=== PATIENT | female | born 1990 | race Caucasian/White ===

== ENCOUNTER → 2023-11-29 14:47 | Outpatient (REF) | payer OTHER, SELFPAY | LOC: PNTC 14:47 | PROVIDERS: ATTENDING PHYSICIAN Obstetrics & Gynecology | DX: O99.210 Obesity complicating pregnancy, unspecified trimester (principal); Z87.51 Personal history of pre-term labor | CPT/HCPCS: 76816; 76817 ==

== ENCOUNTER → 2023-12-27 10:51 | Outpatient (REF) | payer OTHER, SELFPAY | LOC: PNTC 10:51 | PROVIDERS: ATTENDING PHYSICIAN Obstetrics & Gynecology | DX: Z87.51 Personal history of pre-term labor (principal); O99.210 Obesity complicating pregnancy, unspecified trimester | CPT/HCPCS: 76816 ==

== ENCOUNTER 2024-01-05 14:00 | Emergency (ER) | payer OTHER, SELFPAY ==
[2024-01-05 14:13] VITALS: BP 156/117
[2024-01-05 14:58] LABS: % Basophils 0.2 % (0-2); % Eosinophils 1.1 % (0-6); % Immature Granulocytes 0.8 % (0-0.5); % Lymphocytes 20.2 % (20.5-51.1); % Neutrophils 70.7 % (42.2-75.2); Absolute Eosinophils 0.1 10^3/uL (0-0.7); Absolute Immature Granulocytes 0.1 10^3/uL (0-0.05); Absolute Lymphocytes 2.7 10^3/uL (1.2-3.4); Absolute Monocytes 0.9 10^3/uL (0.1-0.6); Absolute Neutrophils 9.4 10^3/uL (1.4-6.5); Hematocrit 30.8 % (37.0-47.0); Mean Corp Hgb Conc. 35.7 g/dL (33.0-37.0); Mean Corpuscular Hgb 29.6 pg (27.0-31.0); Mean Corpuscular Volume 82.8 fL (81.0-99.0); Mean Platelet Volume 9.1 fL (7.4-10.4); Nucleated Red Blood Cells % 0 %; Platelet Count 334 10^3/uL (130-400); Red Blood Cell Count 3.72 10^6/uL (4.20-5.40); Red Cell Dist. Width 14.1 % (11.5-14.5); White Blood Cell Count 13.3 10^3/uL (4.8-10.8)
[2024-01-05 14:59] LABS: Urine Albumin Negative (Neg - Trace); Urine Bilirubin Negative (Negative); Urine Character Clear (Clear); Urine Color Yellow; Urine Glucose Negative (Negative); Urine Ketone Negative (Negative); Urine Leukocyte Trace (Negative); Urine Nitrite Negative (Negative); Urine Occult Blood Trace (Negative); Urine Urobilinogen Negative (Neg - 1+)
--- NOTE | 2024-01-05 14:59 | ED.GENMED ---
History of Present Illness
General
Chief Complaint: Blood Pressure Problem
Source: patient
Time Seen by Provider: 01/05/24 14:53
Travel History
Have you had any contact with someone who has COVID-19?: No
Do you have any symptoms of coronavirus? Fever > 100 degrees, chills, cough, shortness of breath, sore throat, loss of taste or smell, muscle aches, or headache?: No
History of Present Illness
History of Present Illness:
33-year-old female presents to the emergency room because she is feeling 'just not himself'. She noticed this today. She denies headache currently but has had a headache earlier today. she denies nausea or vomiting. Patient states that she really
has not been feeling exactly herself since taking a glucose tolerance test about a week ago. First test was abnormal so she had a 3-hour test performed couple days ago. She has not gotten the results yet. She denies any fever, chills, cough.
Past History
Past History
ED Past Medical History: None
ED Past Surgical History: Other (Oral)
Social History
Tobacco: Non-smoker
Phy Exam
Physical Exam
Physical Exam:
General: Awake, Alert, Oriented X3. No acute distress.
Vitals: Hypertensive in triage. Repeat blood pressure by me is systolic of 141 on the right, 130 on the left
Head: Atraumatic
Eyes: Pupils equal, EOMI
Throat: Airway intact, no exudates
Neck: Trachea midline
Lungs: Clear and equal b/l
Heart: Regular rate, no murmurs
Abd: Soft, Nontender, No pulsatile mass
Neuro: Nonfocal, brisk reflexes bilaterally
Skin: Warm, dry, no rash
Extremities: pulses equal b/l, no edema
Course
Orders/Labs/Results
Orders:
Orders
01/05/24 14:21
Electrocardiogram (*1) Urgent
Reason for Study: Fatigue / Weakness
01/05/24 14:22
EKG- Treatment ONCE
01/05/24 14:25
Add On- LAB Urgent
Tests Added?: uric acid
01/05/24 14:31
Complete Blood Count/With Diff Urgent
Comprehensive Metabolic Panel Urgent
Magnesium Urgent
Uric Acid Urgent
Comment: URIC ACID ADDED ON BY FLOOR 2:30PM 01-05-24
Influenza A+B Rapid Molecular Urgent
CLEVE Source: Nasal Swab
Specimen Description:
Date Specimen was Collected: 01/05/24
Time Specimen was Collected: 14:26
01/05/24 14:32
COVID-19 Antigen Urgent
Source: Nasal Swab
Protein/Creat Ratio (Random) Urgent
Date Specimen was Collected: 01/05/24
Time Specimen was Collected: 14:26
Comment: ADD ON
Urine Culture Reflexed from UA [Urinalysis Reflex To Culture] Urgent
Date Specimen was Collected: 01/05/24
Time Specimen was Collected: 14:26
Urine Microscopic Reflex Cult Urgent
01/05/24 15:15
Heart Tones ONCE
01/05/24 15:22
Add On- LAB Urgent
Tests Added?: protein/creat ratio
Abnormal Lab Results
01/05/24 01/05/24
14:31 14:32
WBC 13.3 H 10^3/uL
(4.8-10.8)
RBC 3.72 L 10^6/uL
(4.20-5.40)
Hgb 11.0 L g/dL
(12.0-16.0)
Hct 30.8 L %
(37.0-47.0)
Abs Immat Gran (auto) 0.1 H 10^3/uL
(0-0.05)
Absolute Neuts (auto) 9.4 H 10^3/uL
(1.4-6.5)
Absolute Monos (auto) 0.9 H 10^3/uL
(0.1-0.6)
Immature Gran % 0.8 H %
(0-0.5)
Lymphocytes % 20.2 L %
(20.5-51.1)
Sodium 133 L mmol/L
(135-145)
Chloride 108 H mmol/L
(98-107)
Carbon Dioxide 19 L mmol/L
(22-30)
BUN 6 L mg/dl
(7-17)
Creatinine 0.4 L mg/dL
(0.6-1.0)
Albumin 3.4 L g/dl
(3.5-5.0)
Ur Occult Blood Reflex Trace A
(Negative)
Leukocyte Esterase Rfl Trace A
(Negative)
Urine RBC 3-6 A /HPF
(0-2)
Urine Bacteria (Reflex) Few A
(Negative)
01/05/24 14:31
01/05/24 14:31
Vital Signs
Initial and Last Documented VS:
Initial Vital Signs
Temp Pulse Resp BP Pulse Ox
98.3 F 115 20 156/117 97
01/05/24 14:13 01/05/24 14:13 01/05/24 14:13 01/05/24 14:13 01/05/24 14:13
Last Documented Vital Signs
Temp Pulse Resp BP Pulse Ox
98.3 F 115 20 120/75 97
01/05/24 14:13 01/05/24 14:13 01/05/24 14:13 01/05/24 15:29 01/05/24 14:13
MDM/Problems Addressed
Differential Diagnosis Includes:
pre-eclampsia, vaso-vagal event, uri
MDM/Problems Addressed:
Patient presented with a somewhat elevated blood pressure. However several blood pressures were more normal. Labs show no elevation of uric acid, normal platelets, normal LFTs, no protein in the urine. Dr. Ventura saw the patient for [employer]. Stable for
discharge and outpatient follow-up. No evidence for any acute infectious process. I personally measured heart tones with Doppler at 140s
*Pulse Oximetry
Patient hypoxic: no
*Critical Care Note
Total Time (30-74mins, 75-104mins- exclusive of procedures): Not Applicable
ED Attending Note
-
Portions of this chart may have been created with voice recognition software.� Occasional wrong word or��sound alike� substitutions may have occurred due to the inherent limitations of voice recognition software.
Discharge Plan
Departure
Patient Disposition: Home (Routine Discharge)
Date of Disposition: 01/05/24
Time of Disposition: 15:34
Patient with high blood pressure during this ER visit?: No
Discharge Problem:
Vasovagal episode
Instructions: Vasovagal Response (DC)
Prescriptions:
No Action
ondansetron 8 mg tablet,disintegrating
8 mg PO TID PRN (Reason: nausea and vomiting) Qty: 20 0RF
oxycodone 5 mg tablet
5 mg PO Q4H PRN (Reason: Pain) Qty: 10 0RF
prednisone 20 mg tablet
20 mg PO BID Qty: 6 0RF
Referrals:
NONE,* [Family Provider] -
Interventions
Interventions:
*Risk Screen - Suicide Last Done: 01/05/24 14:13
*General Assessment Last Done: 01/05/24 14:13
*Neglect/Abuse Screening Last Done: 01/05/24 15:45
ED- Fall Risk Assessment Last Done: 01/05/24 15:45
*ED COVID-19 Vaccine History Last Done: 01/05/24 15:45
*Nursing Disposition Last Done: 01/05/24 15:45
ED- Cardiac Assessment Last Done: 01/05/24 15:45
ED- Neurological Assessment Last Done: 01/05/24 15:46
ED- Pulmonary Assessment Last Done: 01/05/24 15:46
Discharge Date and Time
Discharge Date/Time: 01/05/24 15:45
[2024-01-05 15:00] LABS: COVID-19 Antigen Negative (Negative)
[2024-01-05 15:02] LABS: ALT (SGPT) < 10 U/L (0-35); AST (SGOT) 16 U/L (14-36); Albumin 3.4 g/dl (3.5-5.0); Alkaline Phosphatase 123 U/L (38-126); Blood Urea Nitrogen 6 mg/dl (7-17); Calcium 9.1 mg/dl (8.4-10.2); Carbon Dioxide 19 mmol/L (22-30); Chloride 108 mmol/L (98-107); Glucose 99 mg/dl (70-99); Magnesium 1.8 mg/dl (1.6-2.3); Potassium 3.9 mmol/L (3.5-5.1); Sodium 133 mmol/L (135-145); Total Bilirubin 0.2 mg/dl (0.2-1.3); Total Protein 6.3 g/dl (6.3-8.2); Uric Acid 3.7 mg/dl (2.5-6.2); eGFR > 60.00
[2024-01-05 15:27] LABS: Urine Mucus Few; Urine Red Cell Cast 0-2 /LPF; Urine Squamous Cell 0-2 /LPF (Few); Urine White Cell Cast 0-2 /LPF
[2024-01-05 15:29] VITALS: BP 120/75
[2024-01-05 15:55] LABS: Protein/creatinine Ratio 0.1; Urine Protein 10 mg/dl
[2024-01-05 16:53] LABS: Urine Bacteria Few (Negative); Urine White Cell 0-2 /HPF (0-5)
== END 2024-01-05 15:45 | disposition home or self-care (01) ==
LOC: EMR 14:00
PROVIDERS: EMERGENCY PHYSICIAN Emergency Medicine
DX: O26.893 Other specified pregnancy related conditions, third trimester (principal); R55 Syncope and collapse; Z3A.29 29 weeks gestation of pregnancy
CPT/HCPCS: 99284; 80053; 81003; 81015; 82570; 83735; 84156; 84550; 85025; 87502; 87811; 93005

== ENCOUNTER → 2024-02-06 15:23 | Outpatient (REF) | payer OTHER, SELFPAY | LOC: PNTC 15:23 | PROVIDERS: ATTENDING PHYSICIAN Obstetrics & Gynecology | DX: Z87.51 Personal history of pre-term labor (principal); O98.519 Other viral diseases complicating pregnancy, unspecified trimester; U07.1 COVID-19; O99.320 Drug use complicating pregnancy, unspecified trimester | CPT/HCPCS: 76816 ==

== ENCOUNTER 2024-02-20 14:15 | Observation (INO) | payer OTHER, SELFPAY ==
[2024-02-20 14:26] VITALS: BP 131/97; BMI 31.5
[2024-02-20 15:08] LABS: Urine Albumin 1+ (Neg - Trace); Urine Bilirubin 1+ (Negative); Urine Character Clear (Clear); Urine Glucose Negative (Negative); Urine Ketone 1+ (Negative); Urine Leukocyte 1+ (Negative); Urine Nitrite Negative (Negative); Urine Occult Blood Negative (Negative); Urine Specific Gravity 1.025 (<1.030); Urine Urobilinogen 1+ (Neg - 1+)
[2024-02-20 15:10] LABS: Urine Color Yellow
[2024-02-20 15:19] LABS: Urine Squamous Cell 26-30 /LPF (Few)
[2024-02-20 15:20] LABS: Urine Red Blood Cell 0-2 /HPF (0-2)
[2024-02-20 15:29] LABS: ALT (SGPT) < 10 U/L (0-35); AST (SGOT) 17 U/L (14-36); Albumin 3.3 g/dl (3.5-5.0); Alkaline Phosphatase 178 U/L (38-126); Blood Urea Nitrogen 12 mg/dl (7-17); Calcium 9.6 mg/dl (8.4-10.2); Carbon Dioxide 21 mmol/L (22-30); Chloride 107 mmol/L (98-107); Estimated Creatinine Clearance > 125 ml/min; Glucose 129 mg/dl (70-99); Hemoglobin 11.9 g/dL (12.0-16.0); Mean Corp Hgb Conc. 33.1 g/dL (33.0-37.0); Mean Corpuscular Hgb 27.7 pg (27.0-31.0); Mean Corpuscular Volume 83.9 fL (81.0-99.0); Mean Platelet Volume 10.3 fL (7.4-10.4); Platelet Count 387 10^3/uL (130-400); Potassium 4.2 mmol/L (3.5-5.1); Red Blood Cell Count 4.29 10^6/uL (4.20-5.40); Red Cell Dist. Width 14.3 % (11.5-14.5); Sodium 131 mmol/L (135-145); Total Bilirubin 0.3 mg/dl (0.2-1.3); Total Protein 6.5 g/dl (6.3-8.2); White Blood Cell Count 12.5 10^3/uL (4.8-10.8); eGFR > 60.00
[2024-02-20 15:43] LABS: Urine Protein 15 mg/dl
== END 2024-02-20 16:47 | disposition home or self-care (01) ==
LOC: PNTC-IN 14:15
PROVIDERS: ADMITTING PHYSICIAN Obstetrics & Gynecology
DX: O26.893 Other specified pregnancy related conditions, third trimester (principal); R03.0 Elevated blood-pressure reading, without diagnosis of hypertension
CPT/HCPCS: 80053; 81003; 81015; 82570; 84156; 85027; 86850; 86900; 86901; G0378

== ENCOUNTER 2024-02-22 01:12 | Inpatient (IN) | payer OTHER, SELFPAY ==
[2024-02-22 01:14] VITALS: BP 136/91; BMI 31.1
[2024-02-22 02:44] LABS: % Basophils 0.2 % (0-2); % Eosinophils 1.1 % (0-6); % Immature Granulocytes 0.3 % (0-0.5); % Lymphocytes 27.8 % (20.5-51.1); % Monocytes 8.1 % (1.7-9.3); % Neutrophils 62.5 % (42.2-75.2); Absolute Eosinophils 0.1 10^3/uL (0-0.7); Absolute Lymphocytes 3.3 10^3/uL (1.2-3.4); Absolute Neutrophils 7.4 10^3/uL (1.4-6.5); Hematocrit 32.5 % (37.0-47.0); Hemoglobin 11.2 g/dL (12.0-16.0); Mean Corp Hgb Conc. 34.5 g/dL (33.0-37.0); Mean Corpuscular Hgb 28.3 pg (27.0-31.0); Mean Corpuscular Volume 82.1 fL (81.0-99.0); Mean Platelet Volume 10.2 fL (7.4-10.4); Nucleated Red Blood Cells % 0 %; Platelet Count 317 10^3/uL (130-400); Red Blood Cell Count 3.96 10^6/uL (4.20-5.40); Red Cell Dist. Width 14.5 % (11.5-14.5); Urine Albumin Trace (Neg - Trace); Urine Bilirubin Negative (Negative); Urine Character Clear (Clear); Urine Color Yellow; Urine Glucose Negative (Negative); Urine Ketone Trace (Negative); Urine Leukocyte Trace (Negative); Urine Nitrite Negative (Negative); Urine Occult Blood Negative (Negative); Urine Specific Gravity 1.025 (<1.030); Urine Urobilinogen Negative (Neg - 1+); White Blood Cell Count 11.9 10^3/uL (4.8-10.8)
[2024-02-22 02:58] LABS: Protein/creatinine Ratio 0.4; Urine Protein 55 mg/dl
[2024-02-22 03:09] LABS: ALT (SGPT) < 10 U/L (0-35); AST (SGOT) 15 U/L (14-36); Albumin 3.1 g/dl (3.5-5.0); Alkaline Phosphatase 172 U/L (38-126); Blood Urea Nitrogen 11 mg/dl (7-17); Carbon Dioxide 22 mmol/L (22-30); Chloride 107 mmol/L (98-107); Estimated Creatinine Clearance > 125 ml/min; Glucose 101 mg/dl (70-99); Potassium 4.1 mmol/L (3.5-5.1); Sodium 134 mmol/L (135-145); Total Bilirubin 0.3 mg/dl (0.2-1.3); Total Protein 6.2 g/dl (6.3-8.2); Uric Acid 5.3 mg/dl (2.5-6.2); eGFR > 60.00
[2024-02-22] MEDS: MAGNESIUM SULFATE 100 IV (03:41)
[2024-02-22] MEDS: LR 1000 IV ×2 (03:45→16:11)
[2024-02-22 03:49] LABS: Urine Squamous Cell >30 /LPF (Few)
[2024-02-22 03:52] LABS: Urine Bacteria Moderate (Negative)
[2024-02-22] MEDS: TRANDATE 20 MG IV (03:57)
[2024-02-22] MEDS: FLUSH (NSS) 2 FLUSH IV (04:00)
[2024-02-22] MEDS: MAGNESIUM SULFATE 40 GRAM 1000 IV ×2 (04:06→22:15)
[2024-02-22] MEDS: VANCOCIN 300 ML IV (04:06)
[2024-02-22] MEDS: VANCOCIN 300 MG IV (04:06)
[2024-02-22] MEDS: BENADRYL 50 MG IV (05:43)
[2024-02-22 07:01] LABS: Magnesium 4.1 mg/dl (1.6-2.3)
[2024-02-22] MEDS: PITOCIN 30 UNITS/NSS 500 ML IV ×2 (10:01→19:23)
[2024-02-22] MEDS: ANCEF 5 IV (13:24)
[2024-02-22] MEDS: FENTANYL/BUPIVACAINE 100 EPIDURAL (16:11)
[2024-02-22] MEDS: MOTRIN 600 MG PO (20:16)
[2024-02-23 06:26] LABS: Hemoglobin 9.5 g/dL (12.0-16.0)
[2024-02-23] MEDS: TYLENOL 650 MG PO ×2 (06:29→15:06)
[2024-02-23] MEDS: LR 1000 IV (06:29)
[2024-02-23] MEDS: PRENATAL PLUS 1 TABLET PO (13:12)
[2024-02-23 14:41] LABS: Syphilis/T. pallidum Ab Reflex Negative (Negative)
[2024-02-24] MEDS: TYLENOL 650 MG PO (04:44)
[2024-02-24] MEDS: PRENATAL PLUS 1 TABLET PO ×2 (08:18→08:28)
[2024-02-24] MEDS: ADACEL 0.5 ML IM (11:38)
== END 2024-02-24 14:46 | disposition home or self-care (01) | DRG 807 ==
LOC: LDRP 01:12
PROVIDERS: Obstetrics & Gynecology; ADMITTING PHYSICIAN Obstetrics & Gynecology
PROC: 10E0XZZ Delivery of Products of Conception, External Approach (ICD-10-PCS; 2024-02-22)
PROC: 10907ZC Drainage of Amniotic Fluid, Therapeutic from Products of Conception, Via Natural or Artificial Opening (ICD-10-PCS; 2024-02-22)
PROC: 3E0234Z Introduction of Serum, Toxoid and Vaccine into Muscle, Percutaneous Approach (ICD-10-PCS; 2024-02-24)
DX: O14.14 Severe pre-eclampsia complicating childbirth (principal); Z37.0 Single live birth; Z3A.36 36 weeks gestation of pregnancy; O70.0 First degree perineal laceration during delivery; J45.990 Exercise induced bronchospasm; O99.344 Other mental disorders complicating childbirth; F41.9 Anxiety disorder, unspecified; F32.A Depression, unspecified; O99.214 Obesity complicating childbirth; Z23 Encounter for immunization; Z87.891 Personal history of nicotine dependence; Z88.0 Allergy status to penicillin
CPT/HCPCS: 88307; 80053; 81003; 81015; 82570; 83735; 84156; 84550; 85014; 85018; 85025; 86780; 90715

== ENCOUNTER 2024-07-06 17:58 | Emergency (ER) | payer OTHER, SELFPAY ==
[2024-07-06 18:06] VITALS: BP 121/68
--- NOTE | 2024-07-06 18:12 | ED.MUSCINJ ---
HPI-Injury
General
Chief Complaint: Musculo-Skeletal Complaint
Source: patient
Exam Limitations: none
Time Seen by Provider: 07/06/24 18:11
Nursing documentation reviewed up to this point in time: agreed with
History of Present Illness-Injury
Is this injury a work related problem?: No
Is pt an associate of [facility]/[place]?: No
Initial Injury comments:
34-year-old female inversion injury to the right ankle playing softball few hours ago, moderate pain worse with movement better with rest
Tachycardic in triage denies chest pain or shortness of breath she is drinking a caffeinated drink, admits to being very active today playing sports and in pain
Past History
Past History
ED Past Medical History: None
ED Past Surgical History: Other (Oral)
Social History
Tobacco: Non-smoker
Alcohol: None
Drug: None
Personal:
Living: with family
Employment: Employed
Review of Systems
Review of Systems
All Other Systems: Not applicable
Constitutional: Denies fever
Respiratory: Denies trouble breathing
Cardiac: Denies chest pain or syncope
Musculoskeletal: Reports joint pain
Phy Exam
Physical Exam
Physical Exam:
Physical Exam
General: no apparent distress, not acutely ill
Neck: No jaundice
Heart: Tachycardic
Lungs: no acute respiratory distress
Neuro: alert and oriented. no focal neurological deficits
Skin: no rash
Psychiatric: well kept. interactive and cooperative
Extremities: Right lower extremity fibular head nontender Achilles intact minimal tenderness over the right lateral malleolus and base of the fifth metatarsal
Injury Course
Orders/Labs/Results
Orders:
Orders
07/06/24 18:00
Ankle, Right 3 view CR [CR Ankle - Right Min 3 Views *] Urgent
Comment:
Reason For Exam: rolled ankle playing softball
07/06/24 18:05
EKG [Electrocardiogram (*1)] Urgent
Reason for Study: Tachycardia
EKG- Treatment ONCE
07/06/24 18:29
Ice Pack-Treatment DIRECTED
Location: right
Splints/Slings/Crut- Treatment ONCE
07/06/24 18:30
Ibuprofen [Motrin] 600 mg PO NOW STA
Procedures
Splinting/Sling Placement
Right Ankle:
Procedure completed by: rn
Pre-splint extermity exam: neurovascular intact
Splint material: other (boot)
MDM/Problems Addressed
Differential Diagnosis Includes:
Strain strain fracture dislocation ligamentous injury
Tachycardia
MDM/Problems Addressed:
Ankle pain
Tachycardia
*Radiology
Radiology exam reviewed: radiology read reviewed
*Pulse Oximetry
Patient hypoxic: no
*EKG
Interpreted by ED Provider?: Yes
EKG Intrepretation Date: 07/06/24
EKG Intrepretation Time: 18:12
Interpretation: abnormal
Comparison EKG: no comparison EKG present
Heart Rate: 140
Rate: tachycardiac
Rhythm: sinus
Ischemia: no ischemia
*Critical Care Note
Total Time (30-74mins, 75-104mins- exclusive of procedures): Not Applicable
Update Note
Update Note:
Update isolated extremity injury, is tachycardic but been very active today in pain, also using caffeine very low index suspicion for PE or occult infection
ED Attending Note
-
Portions of this chart may have been created with voice recognition software.� Occasional wrong word or��sound alike� substitutions may have occurred due to the inherent limitations of voice recognition software.
Discharge Plan
Departure
Patient Disposition: Home (Routine Discharge)
Date of Disposition: 07/06/24
Time of Disposition: 18:43
Patient with high blood pressure during this ER visit?: No
Condition: Good
Covid-19: Not Applicable
Discharge Problem:
Ankle sprain
Instructions: Ibuprofen, Using Cold for Pain, Splint Care, Ankle Sprain ED
Prescriptions:
New
ibuprofen 600 mg tablet
600 mg PO QID PRN (Reason: Pain) Qty: 20 0RF
No Action
prenat.vits,sara,[id number] Tablet
1 tab PO 1XD
Referrals:
Ganga Garcia MD [Active] - Follow up in 10 days
Interventions
Interventions:
*Risk Screen - Suicide Last Done: 07/06/24 18:45
*General Assessment Last Done: 07/06/24 18:34
*Neglect/Abuse Screening Last Done: 07/06/24 18:45
ED- Fall Risk Assessment Last Done: 07/06/24 18:37
*ED COVID-19 Vaccine History Last Done: 07/06/24 18:34
ED-Musculoskeletal Assessment Last Done: 07/06/24 18:34
Discharge Date and Time
Print Language: GREEK
[2024-07-06 18:34] VITALS: BMI 30.2
[2024-07-06] MEDS: MOTRIN 600 MG PO (18:42)
== END 2024-07-06 19:00 | disposition home or self-care (01) ==
LOC: EMR 17:58
PROVIDERS: EMERGENCY PHYSICIAN Emergency Medicine
DX: S93.401A Sprain of unspecified ligament of right ankle, initial encounter (principal); X50.1XXA Overexertion from prolonged static or awkward postures, initial encounter
CPT/HCPCS: 99283; 73610; 93005

== ENCOUNTER 2025-09-11 19:20 | Emergency (ER) | payer OTHER, SELFPAY ==
[2025-09-11 19:26] VITALS: BP 133/93
[2025-09-11 19:47] LABS: Hematocrit 41.6 % (37.0-47.0); Hemoglobin 13.9 g/dL (12.0-16.0); Mean Corp Hgb Conc. 33.4 g/dL (33.0-37.0); Mean Corpuscular Volume 83.4 fL (81.0-99.0); Nucleated Red Blood Cells % 0 %; Red Cell Dist. Width 12.9 % (11.5-14.5)
[2025-09-11 19:58] LABS: ALT (SGPT) 11 U/L (0-35); AST (SGOT) 20 U/L (14-36); Albumin 4.5 g/dl (3.5-5.0); Alkaline Phosphatase 61 U/L (38-126); Blood Urea Nitrogen 14 mg/dl (7-17); Calcium 9.5 mg/dl (8.4-10.2); Carbon Dioxide 25 mmol/L (22-30); Chloride 108 mmol/L (98-107); Glucose 98 mg/dl (70-99); Lipase 86 U/L (23-300); Potassium 4.4 mmol/L (3.5-5.1); Sodium 140 mmol/L (135-145); Total Protein 7.5 g/dl (6.3-8.2); eGFR > 60.00
[2025-09-11 20:02] LABS: HCG, Serum Qualitative Screen Negative
--- NOTE | 2025-09-11 20:14 | ED.GENMED ---
History of Present Illness
General
Chief Complaint: Abdominal Pain
Time Seen by Provider: 09/11/25 20:14
History of Present Illness
History of Present Illness:
FOCUSED PAST MEDICAL HISTORY
- No significant past medical history
REVIEW OF OLD RECORDS
- In April 2024, the patient was seen here with severe preeclampsia
Note:
CHIEF COMPLAINT(S)
Abdominal pain and vomiting.
HISTORY OF PRESENT ILLNESS
The patient is a 35-year-old female who presented with a primary complaint of abdominal pain that began yesterday around 2 PM. The pain is primarily located in the upper abdomen, with some tenderness noted particularly on the right side, overlapping
the gallbladder area. Upon examination, there is also reported tenderness in the lower abdomen, although less severe. The patient describes the abdominal pain as sometimes exacerbated by deep breaths. Along with the discomfort, the patient has
experienced vomiting since yesterday afternoon. She reports diarrhea as well, suggesting a possible viral component.
A white blood cell count was noted to be elevated, though this may be attributed to the pain rather than an infection. A computed axial tomography scan (CT Scan) has been discussed and planned to evaluate further the cause of her symptoms.
The patients test is negative, and there is an acknowledgment of having irregular menstrual cycles due to being on a control shot, which is due for renewal.
PAST MEDICAL AND SURGICAL HISTORY
None reported.
MEDICATIONS
The patient is receiving a control shot but is not on any other medications.
PHYSICAL EXAM
General: Alert, appears slightly uncomfortable
Skin: Warm, dry.
Head: Normocephalic, atraumatic.
Neck: Supple, trachea midline.
Eye Ears, Nose, Mouth, and Throat: Oral mucosa moist.
Cardiovascular: Normal peripheral perfusion, No edema.
Respiratory: Respirations are non-labored.
Gastrointestinal: Tenderness noted in the right upper quadrant and slightly lesser in the right lower quadrant. Abdomen nondistended.
Back: Normal range of motion, normal alignment.
Musculoskeletal: Normal range of motion, normal strength.
Neurological: Alert and oriented to person, place, time, and situation. No focal neurological deficit observed.
Psychiatric: Cooperative, appropriate mood and affect.
PLAN
- Administration of intravenous fluids.
- Administration of Toradol, a non-narcotic anti-inflammatory medication, to manage pain.
- Conduct CT scan to evaluate the abdominal area for causes of pain, particularly the gallbladder.
- Nausea management with appropriate medication.
- Monitor for any additional findings and further intervene as necessary following CT results.
DIFFERENTIAL DIAGNOSIS
The Differential Diagnosis includes, in no particular order and is not limited to:
1. Cholecystitis
2. Appendicitis
3. Viral gastroenteritis
4. Pancreatitis
5. Peptic ulcer disease
6. Hepatitis
7. Ovarian cyst
8. Pyelonephritis
9. Gastroesophageal reflux disease
10. Biliary colic
RADIOLOGY
- CT abdomen pelvis obtained which shows some degree of enteritis along with Marcie lithiasis without cholecystitis
LABS
- White count 14.2, normal hemoglobin, chemistries including LFTs and lipase unremarkable, hCG negative
UPDATE
-SUMMARY OF ENCOUNTER
The patient, a 35-year-old female, presented to the emergency department with complaints of abdominal pain primarily located on the right side. A CT scan was performed, revealing inflammation in the small intestines suggestive of enteritis, commonly
associated with a viral infection or food poisoning. The scan also identified a gallstone, though no signs of appendicitis or gallbladder infection were present. Due to the nature of the inflammation and symptoms, it was determined unnecessary to
admit the patient to the hospital. Instead, outpatient management was advised.
ASSESSMENT
The patient likely has enteritis due to a viral gastroenteritis, as suggested by her symptoms of abdominal pain, vomiting, and diarrhea. There is also the presence of a gallstone, but no current evidence of acute cholecystitis.
EMERGENCY TREATMENTS ADMINISTERED
The patient was managed symptomatically with intravenous fluids for hydration and was given medication for pain control.
PLAN
Discharge with recommendations for outpatient follow-up with a surgeon regarding the gallstone. Educate the patient about monitoring symptoms and return if they worsen or persist. Pain and nausea management measures to be continued at home as needed.
INDEPENDENT REVIEW OF LABS AND INTERPRETATION OF TESTS
My independent review of the CBC shows leukocytosis, indicating a slight increase in white blood cell count potentially due to stress or inflammation.
Radiology Results:
- My independent interpretation of the CT scan shows inflammation in the small intestines indicative of enteritis and the presence of a gallstone without signs of gallbladder infection.
PATIENT EDUCATION AND COUNSELING
The patient was informed that the symptoms are likely due to a viral infection causing enteritis and that the presence of a gallstone does not necessitate an immediate surgical intervention. She was advised to maintain hydration and monitor for
symptoms, understanding that surgical consultation will be needed if gallbladder symptoms recur or worsen.
FOLLOW-UP INSTRUCTIONS
The patient was advised to follow up with Dr. Marquez, a surgeon, to evaluate the necessity of any interventions for gallstones, and to return to the emergency department if symptoms worsen or do not improve.
MEDICATION RECONCILIATION
No prescription for nausea medication was necessary as the patient indicated her symptoms were manageable at home.
MEDICAL DECISION MAKING
-Complexity of Data Reviewed:
Chronic conditions affecting care [None specifically mentioned]
Differential diagnosis includes enteritis, cholelithiasis, and viral gastroenteritis.
-Data:
Category 1: My independent interpretation indicates inflammation of the small intestines (enteritis) from the CT scan.
-Risk:
Consideration of Admission/Observation: Escalation of care including admission/observation was considered given the complexity and risk of the patients presenting complaint and exam findings. However, ultimately I feel the patient is safe for
outpatient management with close follow-up. Reasoning: Work-up reassuring, does not reveal any acute life/organ threatening processes, patients symptoms well controlled upon reevaluation, reexamination is reassuring, vitals are stable, patient
agreeable with discharge, reliable for follow-up.
DIAGNOSIS
1. Enteritis, unspecified (K52.9)
2. Cholelithiasis without cholecystitis (K80.20)
Past History
Past History
ED Past Medical History: None
ED Past Surgical History: Other (Oral)
Social History
Tobacco: Non-smoker
Alcohol: None
Drug: None
Personal:
Living: with family
Employment: Employed
Phy Exam
Physical Exam
Physical Exam:
See HPI
Course
Orders/Labs/Results
Orders:
Orders
09/11/25 19:29
Test Result ONCE
09/11/25 19:37
Complete Blood Count/With Diff Urgent
Comprehensive Metabolic Panel Urgent
HCG, Serum Qualitative Screen Urgent
Lipase Urgent
09/11/25 20:37
0.9% Sodium Chloride 1000 ml [Nss] 1,000 ml IV BOLUS
Ketorolac [Toradol] 15 mg IV NOW STA
Ondansetron Injectable [Zofran] 4 mg IV NOW STA
09/11/25 20:38
CT Abd/pelvis W Iv Cont Urgent
Comment:
Reason For Exam: R pain; leukocytosis
Abnormal Lab Results
09/11/25
19:37
WBC 14.2 H 10^3/uL
(4.8-10.8)
Abs Immat Gran (auto) 0.1 H 10^3/uL
(0-0.05)
Absolute Neuts (auto) 9.5 H 10^3/uL
(1.4-6.5)
Absolute Monos (auto) 1.1 H 10^3/uL
(0.1-0.6)
Chloride 108 H mmol/L
(98-107)
09/11/25 19:37
09/11/25 19:37
Vital Signs
Initial and Last Documented VS:
Initial Vital Signs
Temp Pulse Resp BP Pulse Ox
36.7 C 113 18 133/93 96
09/11/25 19:26 09/11/25 19:26 09/11/25 19:26 09/11/25 19:26 09/11/25 19:26
Last Documented Vital Signs
Temp Pulse Resp BP Pulse Ox
36.7 C 90 17 116/71 96
09/11/25 19:26 09/12/25 00:15 09/12/25 00:15 09/12/25 00:00 09/12/25 00:15
*Pulse Oximetry
SaO2: 96
Oxygen Mode of Delivery: Room air
Patient hypoxic: no
*Critical Care Note
Total Time (30-74mins, 75-104mins- exclusive of procedures): Not Applicable
ED Attending Note
-
Portions of this chart may have been created with voice recognition software.� Occasional wrong word or��sound alike� substitutions may have occurred due to the inherent limitations of voice recognition software.
Discharge Plan
Departure
Patient Disposition: Home (Routine Discharge)
Date of Disposition: 09/12/25
Time of Disposition: 00:36
Patient with high blood pressure during this ER visit?: Yes
Discharge Problem:
Enteritis
Instructions: Viral gastroenteritis in adults, Abdominal Pain
Prescriptions:
No Action
prenat.vits,sara,uhk-rerz-jvjcz Tablet
1 tab PO 1XD
ibuprofen 600 mg tablet
600 mg PO QID PRN (Reason: Pain) Qty: 20 0RF
Referrals:
ARTURO LIMON MD [Family Provider, Internal Medicine]
Zen Marquez MD [Active, Surgical]
Activity Restrictions/Additional Instructions:
Your white blood cell count is slightly high at 14.2. We gave you IV fluids and your heart rate is now back down to normal. The CAT scan shows that you have some signs of enteritis which means inflammation of the small intestines. This is
commonly seen with a stomach bug or a viral illness. This is commonly seen with vomiting and diarrhea. You also have a gallstone therefore I recommend that you follow-up with a general surgeon such as Dr. Marquez if you have recurrence of pain in
the right upper side of your abdomen.
Interventions
Interventions:
*Risk Screen - Suicide Last Done: 09/11/25 19:21
*General Assessment Last Done: 09/11/25 19:27
*Neglect/Abuse Screening Last Done: 09/11/25 19:21
*ED- Fall Risk Assessment Last Done: 09/11/25 21:39
*ED COVID-19 Vaccine History Last Done: 09/11/25 19:27
*ED Influenza Vaccine History Last Done: 09/11/25 19:27
ON-Iuilns-Qbdddhbcyq Assessment Last Done: 09/11/25 20:46
Discharge Date and Time
Print Language: IRISH
[2025-09-11 20:50] VITALS: BP 141/98
[2025-09-11] MEDS: TORADOL 15 MG IV (20:57)
[2025-09-11] MEDS: NSS 1000 IV (20:57)
[2025-09-11] MEDS: ZOFRAN 4 MG IV (20:57)
[2025-09-11 21:00] VITALS: BP 117/92
[2025-09-11 22:00] VITALS: BP 122/84
[2025-09-11 23:00] VITALS: BP 107/65
[2025-09-12] VITALS: BP 116/71
== END 2025-09-12 00:50 | disposition home or self-care (01) ==
LOC: EMR 19:20
PROVIDERS: EMERGENCY PHYSICIAN Emergency Medicine; FAMILY PHYSICIAN Student in an Organized Health Care Education/Training Program
DX: K52.9 Noninfective gastroenteritis and colitis, unspecified (principal); K80.20 Calculus of gallbladder without cholecystitis without obstruction; Z79.3 Long term (current) use of hormonal contraceptives
CPT/HCPCS: 96374; 96375; 96361; 99284; 74177; 80053; 83690; 84703; 85025; Q9967

== ENCOUNTER → 2025-10-06 07:20 | Outpatient (REF) | payer OTHER, SELFPAY | LOC: HWRAD 07:20 | PROVIDERS: ATTENDING PHYSICIAN Surgery; FAMILY PHYSICIAN Internal Medicine | DX: K80.50 Calculus of bile duct without cholangitis or cholecystitis without obstruction (principal) | CPT/HCPCS: 76700 ==